=== PATIENT | female | born 1980 | race Caucasian/White ===

== ENCOUNTER 2018-01-23 08:18 | Emergency (ER) | payer BC ==
--- OUTSIDE RECORDS SUMMARY | 2018-01-23 08:24 | XMS REPORT ---
:1980 External Reference #:[id number] Author Organization [facility] Address [address] [address] Phone [phone] Care Team Providers Name Role Phone Winston Reddy MD Primary Care Physician Unavailable Payers Type Date Identification Numbers Payment Provider Subscriber Commercial Policy Number: [id number] BS [employer]ets Williams Doherty PayID: [id number] [address] [address] [place] [address] Problems Date Description Provider Status Onset: 03/17/2013 Generalized anxiety disorder Melania Alvarez M.D. Active Family History Date Family Member(s) Problem(s) Comments Father No Current Problems Mother Food allergies Social History Type Date Description Comments Marital Status Lives With Daughters and significant other Occupation customer service, college [employer] Cigarette Use Never Smoked Cigarettes ETOH Use Occasionally consumes alcohol 2-3x weekly Smoking Patient has never smoked Recreational Drug Use Denies Drug Use Exercise Type/Frequency Exercises regularly run/bike/yoga Allergies, Adverse Reactions, Alerts Date Description Reaction Status Severity Comments 03/17/2013 NKDA active Medications Medication Date Status Form Strength Qnty SIG Indications Ordering Provider Flovent HFA 11/07 Active Aerosol 110mcg/Ac 12uni Inhale 2 t ts Puffs By NAGI Riddle Mouth Twice Daily For 2 Weeks, Rinse Mouth After Use. Vitamin D3 08/15 Active Capsules [id number] 8caps 1 tab by Melania Erin mouth once Alvarez, per week, 8 M.D. weeks, then follow up for blood test Oseltamivir 09/17 Hx Capsules 75mg 10cap one capsule J11.89 Mikal Phosphate /2017 s twice daily Janessa, CILNICAL SCIENTIST - for 5 days 09/22 Fluticasone 09/17 Hx Suspension 50mcg/Act 16uni 2 sprays J11.89 Mikal Propionate ts each nostril Janessa, CILNICAL SCIENTIST - qd. x 2 10/01 weeks Flovent HFA 09/17 Hx Aerosol 110mcg/Ac 12gm 2 puffs J11.89 Mikal t twice daily, Janessa, CILNICAL SCIENTIST - rinse mouth 10/01 after use. x 2 weeks Cheratussin ac 09/17 Hx Syrup 100-10mg/ 118ml take 5-10 J11.89 Mikal 5ML milliliters Janessa, CILNICAL SCIENTIST - every 4-6 11/26 hours needed for cough. Probiotic Daily 07/09 Hx Capsules 1 by mouth Melania /2015 every day Velasquez Alvarez M.D. 11/26 Ventolin HFA 11/27 Hx Aerosol 108(90Bas 1unit 2 puffs by 466.0 e) s mouth four Antonio - mcg/Act times a day M.D. 07/09 as needed Lotrisone 11/27 Hx Cream 1-0.05% 45gm apply to 782.9 area 2x per Antonio, - day M.D. 07/09 Levofloxacin 10/17 Hx Tablets 500mg 10tab one by mouth 461.8 s daily for 10 Antonio, - days M.D. 07/09 Fluconazole 10/17 Hx Tablets 150mg 2tabs one by mouth 461.8 Mikal may repeat Janessa, CILNICAL SCIENTIST - in 3 days as 11/27 needed Triamcinolone 10/17 Hx Cream 0.1% 80gm apply thin 782.9 Mikal Acetonide film twice Janessa, CILNICAL SCIENTIST - daily 07/09 Flonase Allergy 10/12 Hx Suspension 50mcg/Act 1unit 2 sprays s each nares Velasquez Alvraez 2x pe day M.D. 07/09 Amoxicillin 10/11 Hx Capsules 500mg 20cap 1 by mouth s twice a day Velasquez Alvarez M.D. 10/12 Tussionex 10/11 Hx Liquid ER 10-8mg/5M 50ml 1 teaspoon Melania Pennkinetic /2014 L by mouth 5cc Yelena Alvarez - every 12 M.D. Release 11/27 hours needed Amoxicillin/Cla 10/02 Hx Tablets 875-125mg 20tab 1 tab by 461.8 Melania vulanate /2014 s mouth 2x per Antonio Potassium - day M.D. 10/17 No Active 07/04 Hx Unknown Medications /2013 - 10/02 Neomycin/Polymy 01/25 Hx Solution 3.5-92826 1vial 2 drops left 380.22 Melania mary/Hydrocortis /2013 -1 ear 4x per Antonio one - day 7-10 M.D. No Active 10/31 Hx Unknown Medications /2013 - 01/25 Amoxicillin 07/21 Hx Capsules 500mg 40cap 2 bid for 10 Winston s days Velasquez Martinez M.D.,FACP 10/31 Azithromycin 07/20 Hx Tablets 250mg 6tabs 2 tab po day 1 then 1 tab Antonio - po day 2-5 M.D. 07/21 Levofloxacin 07/19 Hx Tablets 500mg 7tabs take one 786.2 pill po x 7 [place]-W - days atson, 07/21 N.P. /2012 Amoxicillin 06/29 Hx Capsules 500mg 20cap 1 po bid s Velasquez Alvarez M.D. 07/19 No Active 06/20 Hx Unknown Medications /2012 - 06/20 Ventolin HFA 06/20 Hx Aerosol 108(90Bas 1unit 2 puffs po 461.9 e) s qid prn Antonio - mcg/Act M.DJames 10/31 Rhinocort Aqua 06/20 Hx Suspension 32mcg/Act 1unit 2 sprays 461.9 s each nares Velasquez Alvarez every day M.D. 10/31 No Active 04/25 Hx Unknown Medications /2012 - 04/25 Keflex 04/25 Hx Capsules 250mg 30cap 1 tab po 681.11 s every 8 Antonio, - joe George.Betty 06/20 Metrogel-Vagina 03/21 Hx Gel 0.75% 1unit apply once a s day x 7 days Velasquez Alvarez M.D. 04/25 No Active 03/17 Hx Melania Velasquez Alvarez M.D. 03/21 Calcium + D Hx Chewtabs 500-1000- every day Unknown /0000 40mg-Unt- - mcg 11/26 Immunizations CPT Code Status Date Vaccine Lot # [id number] Given 07/09/2015 Influenza Virus Vaccine, Quadrivalent, Split, [id number] Preservative Free [id number] Given 07/04/2014 Flu Vaccine Split Virus Preservative Free For Indiv [id number] Older [id number] Given 05/15/2013 Tdap - Tetanus/Diptheria/Acellular Pertussis [id number] Given 05/01/2013 Fluzone Vaccine Vital Signs Date Vital Result Comment 2017 Height 63 inches 5'3" Weight 115.00 lb Heart Rate 74 /min BP Systolic Sitting 112 mmHg BP Diastolic Sitting 64 mmHg Body Temperature 98.0 F O2 % BldC Oximetry 97 % BMI (Body Mass Index) 20.4 kg/m2 09/17/2017 Weight 115.00 lb Heart Rate 83 /min BP Systolic 104 mmHg BP Diastolic 60 mmHg Body Temperature 98.7 F O2 % BldC Oximetry 98 % 07/09/2015 Height 63 inches 5'3" Weight 109.00 lb Heart Rate 68 /min BP Systolic 98 mmHg BP Diastolic 62 mmHg Body Temperature 99.3 F BMI (Body Mass Index) 19.3 kg/m2 11/27/2014 Weight 108.75 lb Heart Rate 68 /min BP Systolic Sitting 98 mmHg BP Diastolic Sitting 68 mmHg Body Temperature 98.2 F O2 % BldC Oximetry 96 % 10/17/2014 Weight 111.00 lb Heart Rate 77 /min BP Systolic Sitting 94 mmHg BP Diastolic Sitting 59 mmHg Body Temperature 97.5 F 10/02/2014 Height 63.25 inches 5'3.25" Weight 112.00 lb w/ boots Heart Rate 88 /min BP Systolic Sitting 104 mmHg BP Diastolic Sitting 68 mmHg Body Temperature 99.1 F O2 % BldC Oximetry 99 % BMI (Body Mass Index) 19.7 kg/m2 07/04/2014 Height 63.25 inches 5'3.25" Weight 105.00 lb Heart Rate 46 /min BP Systolic Sitting 110 mmHg BP Diastolic Sitting 62 mmHg BMI (Body Mass Index) 18.5 kg/m2 01/25/2014 Weight 109.50 lb Heart Rate 68 /min BP Systolic Sitting 92 mmHg BP Diastolic Sitting 60 mmHg Body Temperature 98.0 F 10/31/2013 Weight 112.50 lb Heart Rate 68 /min BP Systolic 94 mmHg BP Diastolic 58 mmHg Respiratory Rate 16 /min Body Temperature 98.0 F 07/19/2013 Weight 111.00 lb Heart Rate 74 /min BP Systolic Sitting 98 mmHg BP Diastolic Sitting 64 mmHg Body Temperature 98.2 F O2 % BldC Oximetry 98 % 06/20/2013 Weight 111.00 lb Heart Rate 87 /min BP Systolic Sitting 108 mmHg BP Diastolic Sitting 70 mmHg Body Temperature 98.0 F 04/25/2013 Height 63.25 inches 5'3.25" Weight 107.00 lb Heart Rate 65 /min BP Systolic Sitting 102 mmHg BP Diastolic Sitting 65 mmHg BMI (Body Mass Index) 18.8 kg/m2 03/17/2013 Height 63.25 inches 5'3.25" Weight 104.00 lb Heart Rate 77 /min BP Systolic Sitting 100 mmHg BP Diastolic Sitting 60 mmHg BMI (Body Mass Index) 18.3 kg/m2 Results Test Date Test Result H/L Range Note Laboratory test finding 08/13/2015 Vitamin D Total 25(Oh) 23.4 ng/mL Low 30-50 1 Lipid Profile 08/13/2015 Triglycerides 37 mg/dL 2 (Trig/Chol/HDL) Cholesterol 147 mg/dL 3 HDL Cholesterol 66.3 mg/dL 4 LDL Cholesterol 73 mg/dL 5 CBC Auto Diff 08/13/2015 White Blood Count 4.9 10^3/uL 3.5-10.8 Red Blood Count 4.13 10^6/uL 4.0-5.4 Hemoglobin 14.0 g/dL 12.0-16.0 Hematocrit 42 % 35-47 Mean Corpuscular Volume 101 fL High 80-97 Mean Corpuscular Hemoglobin 34 pg High 27-31 Mean Corpuscular HGB Conc 34 g/dL 31-36 Red Cell Distribution Width 13 % 10.5-15 Platelet Count 231 10^3/uL 150-450 Mean Platelet Volume 7 um3 Low 7.4-10.4 Abs Neutrophils 3.1 10^3/uL 1.5-7.7 Abs Lymphocytes 1.4 10^3/uL 1.0-4.8 Abs Monocytes 0.3 10^3/uL 0-0.8 Abs Eosinophils 0.1 10^3/uL 0-0.6 Abs Basophils 0 10^3/uL 0-0.2 Abs Nucleated RBC 0.01 10^3/uL Granulocyte % 62.6 % 38-83 Lymphocyte % 28.1 % 25-47 Monocyte % 6.8 % 1-9 Eosinophil % 2.0 % 0-6 Basophil % 0.5 % 0-2 Nucleated Red Blood Cells % 0.1 Laboratory test finding 08/13/2015 Vitamin B12 456 pg/mL 180-914 6 TSH (Thyroid Stim Horm) 1.92 ?IU/mL 0.34-5.60 7 Laboratory test finding 07/09/2015 Cytology SEE RESULT BELOW 8 HPV Rna Ww/Reflex Genotype Negative Negative 9 Comp Metabolic Panel 11/27/2014 Sodium 137 mmol/L 133-145 Potassium 3.9 mmol/L 3.5-5.0 Chloride 103 mmol/L 101-111 Co2 Carbon Dioxide 29 mmol/L 22-32 Anion Gap 5 mmol/L 2-11 Glucose 84 mg/dL 70-100 Blood Urea Nitrogen 9 mg/dL 6-24 Creatinine 0.55 mg/dL 0.51-0.95 BUN/Creatinine Ratio 16.4 8-20 Calcium 9.0 mg/dL 8.6-10.3 Total Protein 7.0 g/dL 6.4-8.9 Albumin 4.4 g/dL 3.2-5.2 Globulin 2.6 g/dL 2-4 Albumin/Globulin Ratio 1.7 1-3 Total Bilirubin 0.30 mg/dL 0.2-1.0 Alkaline Phosphatase 31 U/L Low 34-104 Alt 32 U/L 7-52 Ast 28 U/L 13-39 Egfr Non- 127.3 >60 Egfr 163.7 >60 10 CBC Auto Diff 11/27/2014 White Blood Count 4.2 10^3/uL Low 4.8-10.8 Red Blood Count 4.00 10^6/uL 4.0-5.4 Hemoglobin 13.5 g/dL 12.0-16.0 Hematocrit 40 % 35-47 Mean Corpuscular Volume 100 fL High 80-97 Mean Corpuscular Hemoglobin 34 pg High 27-31 Mean Corpuscular HGB Conc 34 g/dL 31-36 Red Cell Distribution Width 13 % 10.5-15 Platelet Count 215 10^3/uL 150-450 Mean Platelet Volume 8 um3 7.4-10.4 Abs Neutrophils 1.9 10^3/uL 1.5-7.7 Abs Lymphocytes 1.7 10^3/uL 1.0-4.8 Abs Monocytes 0.5 10^3/uL 0-0.8 Abs Eosinophils 0.1 10^3/uL 0-0.6 Abs Basophils 0 10^3/uL 0-0.2 Abs Nucleated RBC 0 10^3/uL Granulocyte % 44.4 % 38-83 Lymphocyte % 41.2 % 25-47 Monocyte % 11.9 % High 1-9 Eosinophil % 1.7 % 0-6 Basophil % 0.8 % 0-2 Nucleated Red Blood Cells % 0 Laboratory test finding 11/27/2014 Erythrocyte Sed Rate 13 mm/Hr 0-14 Monospot Negative Negative Folate 14.59 ng/mL >3.99 Laboratory test finding 07/04/2014 Cytology RUN DATE: 07/05/ <SEE NOTE&gt ; 11 Human Papilloma Virus Rna Negative Negative 12 Laboratory test finding 10/31/2013 Throat Beta Strep (SEE NOTE) 13 Culture Laboratory test finding 10/31/2013 Rapid Strep A negative Vitamin B12 And Folate 05/11/2013 Vitamin B12 541 pg/mL 180-914 Serum Folate > 24.8 ng/mL High 2-16 Vitamin D, 25 Hydroxy 05/01/2013 25-Hydroxy Vitamin D2 <4.0 ng/mL 25-Hydroxy Vitamin D3 39 ng/mL 25-Hydroxy Vitamin D Total 39 ng/mL 14 CBC Auto Diff 05/01/2013 White Blood Count 5.6 10^3/uL 4.8-10.8 Red Blood Count 3.95 10^6/uL Low 4.0-5.4 Hemoglobin 13.9 g/dL 12.0-16.0 Hematocrit 40 % 35-47 Mean Corpuscular Volume 101 fL High 80-97 Mean Corpuscular Hemoglobin 35 pg High 27-31 Mean Corpuscular HGB Conc 35 g/dL 31-36 Red Cell Distribution Width 13 % 10.5-15 Platelet Count 251 10^3/uL 150-450 Mean Platelet Volume 8 um3 7.4-10.4 Abs Neutrophils 3.2 10^3/uL 1.5-7.7 Abs Lymphocytes 1.7 10^3/uL 1.0-4.8 Abs Monocytes 0.4 10^3/uL 0-0.8 Abs Eosinophils 0.2 10^3/uL 0-0.6 Abs Basophils 0 10^3/uL 0-0.2 Abs Nucleated RBC 0 10^3/uL Neutrophil % 55 % 38-83 Lymphocytes % 34 % 25-47 Monocytes % 7 % 0-13 Eosinophils % 4 % 0-6 Macrocytosis 1+ Basic Metabolic Panel 05/01/2013 Sodium 139 mmol/L 133-145 Potassium 4.2 mmol/L 3.5-5.0 Chloride 109 mmol/L 101-111 Co2 Carbon Dioxide 26.0 mmol/L 22-32 Anion Gap 4.0 mmol/L 2-11 Glucose 100 mg/dL 70-100 Blood Urea Nitrogen 12 mg/dL 6-24 Creatinine 0.50 mg/dL 0.50-1.40 BUN/Creatinine Ratio 24.0 High 8-20 Calcium 9.0 mg/dL 8.1-9.9 Egfr Non- 143.9 >60 Egfr 185.1 >60 15 Herpes Simplex Type 05/01/2013 Herpes Simplex Virus I Negative Negative 1&2 Igg IgG AB Herpes Simplex Virus II IgG AB Negative Negative 16 HIV 1/2 AB 05/01/2013 HIV 1 2 Antibody Nonreactive Nonreactive 17 Evaluation GC/Chlamydia 03/17/2013 GC/Chlamydia Rna (SEE NOTE) 18 Amplified Rna Laboratory test 03/17/2013 Affirm Vaginal Dna (SEE NOTE) 19 finding Probe Laboratory test 03/17/2013 Cytology RUN DATE: finding <SEE NOTE> Laboratory test 03/17/2013 Surgical Pathology RUN DATE: finding <SEE NOTE> 1 FASTING 10 HOUR 2 Desirable <150 Borderline high 150-199 High 200-499 Very High >500 3 Desirable <200 Borderline high 200-239 High >239 4 Low <40 Desirable: 40-60 High: >60 5 Desirable: <100 mg/dL Near Optimal: 100-129 mg/dL Borderline High: 130-159 mg/dL High: 160-189 mg/dL Very High: >189 mg/dL 6 Normal Range 180 to 914 Indeterminate Range 145 to 180 Deficient Range <145 7 FASTING 10 HOUR 8 SEE RESULT BELOW Name: MAGDA CHANDLER : [address]: Melania Alvarez MD Acct: [id number] Unit: [id number] AGE: 34 Location: [facility] Re07/09/15 SEX: F Status: REG REF SPEC: [id number] TOYA: 07/09/15-[address] [facility] [address]: Melania Alvarez MD REQ: [id number] RECD: 07/09/15 STATUS: SOUT _ ORDERED: IMAGE ANALYSIS, HPV/Thin Prep, HPV 16/18 GENE FINAL DIAGNOSIS Negative for Intraepithelial lesion or Malignancy A. Ectocervical/Endocervical Specimen Adequacy: Satisfactory of evaluation Transformation zone component identified Patient Information: HPV: High risk HPV RNA testing regardless of pap results. HPV 16/18 Genotype for HPV pos Actual Specimen Date: 07/09/15 LMP If Unknown: Last Menstrual Period Not Given. Post Menopausal?: N Previous Abnormal Pap Smears?:N Date Time Test Result Flag (u) Normal Range 07/09/15 1546 HPV RNA RFLX GE Negative Negative The high-risk HPV types detected by the assay include: 16, 18, 31, 33, 35, 39, 45, 51, 52, 56, 58, 59, 66, and 68. Signed (signature on file) Nate Noonan 07/10/15 1424 This Pap test was evaluated with the assistance of the Stolen Couch Games[employer] Test Imaging System. Due to cytologic findings at the granulator operator microscope, comprehensive manual rescreening by a [employer] Travel Counselor may be required. The Pap Smear is a screening test designed to aid in the detection of premalignant and malignant conditions of the uterine cervix. It is not a diagnostic procedure and should not be used as the sole means of detecting cervical cancer. Both false- positive and false- negative reports do occur. Depending on your risk status, a Pap smear should be obtained and evaluated every 1-3 years. END OF REPORT * ML=Testing performed at Main Lab DEPARTMENT OF PATHOLOGY, [address] [place] [address] Je Lowe M.D. Director [facility] # [id number] 9 The high-risk HPV types detected by the assay include: 16, 18, 31, 33, 35, 39, 45, 51, 52, 56, 58, 59, 66, and 68. 10 Because ethnic data is not always readily available, this report includes an eGFR for both -Americans and non- Americans. The National Kidney Disease Education Program (NKDEP) does not endorse the use of the MDRD equation for patients that are not between the ages of 18 and 70, are , have extremes of body size, muscle mass, or nutritional status, or are non- or non-. According to the National Kidney Foundation, irrespective of diagnosis, the stage of the disease is based on the level of kidney function: Stage Description GFR(mL/min/1.73 m(2)) 1 Kidney damage with normal or decreased GFR 90 2 Kidney damage with mild decrease in GFR 60-89 3 Moderate decrease in GFR 30-59 4 Severe decrease in GFR 15-29 5 Kidney failure <15 (or dialysis) 11 RUN DATE: 07/05/14 [facility] LAB LIVE PAGE 1 RUN TIME: [address] [place] [address] Specimen Inquiry Name: MAGDA KEVIN : [address]: Melania Alvarez MD Acct: [id number] Unit: [id number] AGE: 33 Location: [facility] Re07/04/14 SEX: F Status: REG REF SPEC: [id number] TOYA: 07/04/14-[address] [facility] [address]: Melania Alvarez MD REQ: [id number] RECD: 07/04/14 STATUS: SOUT _ ORDERED: IMAGE ANALYSIS, HPV/Thin Prep FINAL DIAGNOSIS Negative for Intraepithelial lesion or Malignancy HPV Result: Negative Normal Range: Negative The high-risk HPV types detected by the assay include: 16, 18, 31, 33, 35, 39, 45, 51, 52, 56, 58, 59, 66, and 68. A. Ectocervical/Endocervical Specimen Adequacy: Satisfactory of evaluation Transformation zone component identified Patient Information: HPV: High risk HPV RNA testing regardless of pap results. Actual Specimen Date: 07/04/14 LMP If Unknown: 05/2014 ?: N Post Menopausal?: N Hysterectomy?: N Previous Abnormal Pap Smears?:N Signed (signature on file) CHRISSY Rios (ASCP) 07/05 1407 This Pap test was evaluated with the assistance of the [employer] Test Imaging System. Due to cytologic findings at the granulator operator microscope, comprehensive manual rescreening by a [employer] Travel Counselor may be required. The Pap Smear is a screening test designed to aid in the detection of premalignant and malignant conditions of the uterine cervix. It is not a diagnostic procedure and should not be used as the sole means of detecting cervical cancer. Both false- positive and false- negative reports do occur. Depending on your risk status, a Pap smear shoudl be obtained and evaluated every 1-3 years. END OF REPORT * ML=Testing performed at Main Lab DEPARTMENT OF PATHOLOGY, [address] [place] [address] Je Lowe M.D. Director [facility] # [id number] 12 The high-risk HPV types detected by the assay include: 16, 18, 31, 33, 35, 39, 45, 51, 52, 56, 58, 59, 66, and 68. 13 RUN DATE: 11/02/13 [facility] LAB LIVE PAGE 1 RUN TIME: [address] [place] [address] Specimen Inquiry Name: MAGDA KEVIN : [address]: Maribel Tinsley MD Acct: [id number] Unit: [id number] AGE: 32 Location: [facility] Re10/31/13 SEX: F Status: REG REF SPEC: [id number] TOYA: 10/31/13-[address] [facility] [address]: Maribel Tinsley MD REQ: [id number] RECD: 10/31/13 STATUS: COMP _ SOURCE: THROAT SPDESC: ORDERED: Throat Beta Str QUERIES: Medent Number [id number] Procedure Result Verified Site Throat Beta Strep Culture Final 11/02/13- 0837 ML Negative For Group A Beta Streptococcus END OF REPORT * ML=Testing performed at Main Lab DEPARTMENT OF PATHOLOGY, [address] [place] [address] Je Lowe M.D. Director [facility] Permit #[id number] 14 -- REFERENCE VALUE -- 25-HYDROXY D TOTAL (D2+D3) Optimum levels in the healthy population are 20-50, patients with bone disease may benefit from higher levels within this range. Test Performed by: [facility] [address] [address] Data Architect: Yash Robert III, M.D. 15 Because ethnic data is not always readily available, this report includes an eGFR for both -Americans and non- Americans. The National Kidney Disease Education Program (NKDEP) does not endorse the use of the MDRD equation for patients that are not between the ages of 18 and 70, are , have extremes of body size, muscle mass, or nutritional status, or are non- or non-. According to the National Kidney Foundation, irrespective of diagnosis, the stage of the disease is based on the level of kidney function: Stage Description GFR(mL/min/1.73 m(2)) 1 Kidney damage with normal or decreased GFR 90 2 Kidney damage with mild decrease in GFR 60-89 3 Moderate decrease in GFR 30-59 4 Severe decrease in GFR 15-29 5 Kidney failure <15 (or dialysis) 16 Test Performed by: [place] [address] Data Architect: Yash Robert III, M.D. 17 It is recognized that currently available assays for the detection of antibodies to HIV-1 and/or HIV-2 may not detect all infected individuals. HIV antibodies may be undetectable in some stages of the infection and in some clinical conditions. The performance of this assay has not been established for populations of infants or children. Assayed by Chemiluminescence Microparticle Immunoassay on the Siemens Advia Centaur CP. Values obtained with different methods or kits cannot be used interchangeably.The diagnostic specificity of the ADVIA Centaur 1/O/2 Enhanced assay in the low risk population was 99.90% (6052/6058) with a 95% confidence interval of 99.78 to 99.96%. 18 RUN DATE: 03/21/13 [facility] LAB LIVE PAGE 1 RUN TIME: [address] [place] [address] Specimen Inquiry Name: MAGDA KEVIN : [address]: Melania Alvarez MD Acct: [id number] Unit: [id number] AGE: 32 Location: [facility] Re03/17/13 SEX: F Status: REG REF SPEC: [id number] OTYA: 03/17/[address] [facility] [address]: Melania Alvarez MD REQ: [id number] RECD: 03/17/13 STATUS: COMP _ SOURCE: [facility]: ORDERED: GC/Chlam RNA QUERIES: Medent Number [id number] Procedure Result Verified Site Chlamydia Trachomatis RNA Final 03/21/13- 1430 ML NEGATIVE for Chlamydia trachomatis rRNA GC (N. gonorrhoeae) RNA Final 03/21/13- 1424 ML NEGATIVE for Neisseria gonorrhoeae rRNA A negative result does not preclude the presence of a C. trachomatis or N. gonorrhoeae infection because results are dependent on adequate specimen collection, absence of inhibitors, and sufficient rRNA to be detected. Test results may be affected by improper specimen collection, improper storage, technical error, or specimen mixup. Limitations of the Procedure: The Aptima Combo 2 Assay is not intended for the evaluation of suspected sexual abuse or for other medico-legal indications. For those patients for whom a false positive result may have adverse psychosocial impact, the [facility] recommends retesting by a method using an alternate technology. Therapeutic failure or success cannot be determined with the Aptima Combo 2 Assay since nucleic acid may persist following appropriate antimicrobial therapy. Results from the Aptima Combo 2 Assay should be interpreted in conjunction with other laboratory and clinical data available to the clinican. CONTINUED ON NEXT PAGE * ML=Testing performed at Main Lab DEPARTMENT OF PATHOLOGY, [facility] [email or web address] [place], [place] [address] Je Lowe M.D. Director [facility] Permit #[id number] RUN DATE: 03/21/13 [facility] LAB LIVE PAGE 2 RUN TIME: 9126 [facility] [employer] [place], [place] [address] Specimen Inquiry Patient: MAGDA KEVIN [id number] (Continued) Specimen: [id number] Collected: 03/17/13-1033 Received: 03/17/13-153 (Continued) Procedure Result Verified Site GC (N. gonorrhoeae) RNA Final (continued) 03/21/13 142 Performance characteristics for detecting C. trachomatis and N. gonorrhoeae are derived from high prevalence populations. Positive results in low prevalence populations should be interpreted carefully with the understanding that the likelihood of a false positive may be higher than a true positive. END OF REPORT * ML=Testing performed at Main Lab DEPARTMENT OF PATHOLOGY, [facility] [email or web address] [place], [place] [address] Je Lowe M.D. Director [facility] Permit #[id number] RUN DATE: 03/18/13 [facility] LAB LIVE PAGE 1 RUN TIME: 2463 [facility] [employer] [place], [place] [address] Specimen Inquiry Name: MAGDA KEVIN : [address]: Melania Alvarez MD Acct: [id number] Unit: [id number] AGE: 32 Location: [facility] Re03/17/13 SEX: F Status: REG REF SPEC: [id number] TOYA: 03/17/13-[address] [facility] [address]: Melania Alvarez MD REQ: [id number] RECD: 03/17/13 STATUS: COMP _ SOURCE: VAGINAL SPDESC: ORDERED: Affirm QUERIES: Medent Number [id number] Procedure Result Verified Site Affirm Vaginal DNA Probe Final 03/18/13- 1416 ML Organism 1 Negative Trichomonas Organism 2 POSITIVE GARDNERELLA Organism 3 Negative Vannessa The presence of G. vaginalis, although suggestive, is not diagnostic for bacterial vaginosis. Results should be interpreted in conjunction with other clinical and laboratory data available. Women with vaginal discharge should be evaluated for risk factors of cervicitis and pelvic inflammatory disease, toxic shock syndrome (S.aureus), and if present, evaluated for organisms not included in this assay such as N. gonorrhoeae, C. trachomatis, Mobiluncus, Mycoplasma and/or Prevotella. Mixed infections may occur. The performance of this test on patient specimens collected during or immediately after antimicrobial therapy is unknown. The presence or absence of Vannessa species, G. vaginalis or T. vaginalis cannot be used as a test for therapeutic success or failure. END OF REPORT * ML=Testing performed at Main Lab DEPARTMENT OF PATHOLOGY, [facility] [email or web address] [place] [address] Je Lowe M.D. Director [facility] Permit #[id number] 20 RUN DATE: 03/20/13 [facility] LAB LIVE PAGE 1 RUN TIME: 1232 [facility] [employer] [place], [place] [address] Specimen Inquiry Name: MAGDA KEVIN : [address]: Melania Alvarez MD Acct: [id number] Unit: [id number] AGE: 32 Location: [facility] Re03/17/13 SEX: F Status: REG REF SPEC: [id number] TOYA: 03/17/13-[address] [facility] [address]: Melania Alvarez MD REQ: [id number] RECD: 03/17/13170 STATUS: SOUT _ ORDERED: IMAGE ANALYSIS FINAL DIAGNOSIS Negative for Intraepithelial lesion or Malignancy A. Ectocervical/Endocervical Specimen Adequacy: Satisfactory of evaluation Transformation zone component identified Patient Information: HPV: Thin Layer Pap Test w/reflex to high risk HPV DNA testing when ASCUS Actual Specimen Date: 03/17/13 Last Menstrual Date: 03/12/13 Cautery: N IUD: N Lesion, grossly demonstrate: N ?: N Post Menopausal?: N Hysterectomy?: N Previous Abnormal Pap Smears?:Y If Yes, enter Diagnosis: abnormal pap 4 yrs ago, unknown Signed (signature on file) CHRISSY Rios (ASCP) 03/20 1232 This Pap test was evaluated with the assistance of the [employer] Test Imaging System. Due to cytologic findings at the granulator operator microscope, comprehensive manual rescreening by a [employer] Counselor may be required. The Pap Smear is a screening test designed to aid in the detection of premalignant and malignant conditions of the uterine cervix. It is not a diagnostic procedure and should not be used as the sole means of detecting cervical cancer. Both false- positive and false- negative reports do occur. Depending on your risk status, a Pap smear shoudl be obtained and evaluated every 1-3 years. END OF REPORT * ML=Testing performed at Main Lab DEPARTMENT OF PATHOLOGY, [address] [place] [address] Je Lowe M.D. Director [facility] Permit #[id number] RUN DATE: 03/21/13 [facility] LAB LIVE PAGE 1 RUN TIME: [address] [place] [address], [place], [place] [address] Specimen Inquiry Name: MAGDA KEVIN : [address]: Melania Alvarez MD Acct: [id number] Unit: [id number] AGE: 32 Location: [facility] Re03/17/13 SEX: F Status: REG REF SPEC: [id number] TOYA: 03/17/13-[address]: Melania Alvarez MD REQ: [id number] RECD: 03/17/131550 STATUS: SOUT _ ORDERED: LEVEL III FINAL DIAGNOSIS Skin, adjacent to rectum, biopsy: Acrochordon. PRE-OPERATIVE DIAGNOSIS ? Skin tag versus wart. GROSS DESCRIPTION The specimen is received in formalin labeled Magda Kevin, Adjacent to Rectum, Pedunculated, Soft Brown and consists of a bennett-owen, polypoid fragment measuring 0.4 x 0.4 x 0.4 cm. Submitted entirely in one cassette. Signed (signature on file) Je Lowe MD 1514 END OF REPORT * ML=Testing performed at Main Lab DEPARTMENT OF PATHOLOGY, [address] [place] [address] Je Lowe M.D. Director [facility] Permit #[id number] Procedures Date CPT Code Description Status 03/17/2013 15802 Biopsy Of Vulva One Lesion (Separate Procedure) Completed Encounters Type Date Location Provider CPT E/M Dx Office Visit 2017 2:40p [facility] CHAITANYA Cunningham [address] Z00.00 - [address] M25.572 Office Visit 09/17/2017 11:20a [facility] [place] [address] J11.89 - [place] Office Visit 07/09/2015 3:00p [facility] Melania Alvarez M.D. 63029 Z00.00 - [place] Z82.49 R79.9 Z12.4 Z23 Office Visit 11/27/2014 3:40p [facility] Melania Alvarez M.D. 65129 461.8 - [place] 466.0 782.9 Office Visit 10/17/2014 2:30p [facility] [place] [address] 461.8 [place] 782.9 Office Visit 10/02/2014 9:00a [facility] Melania Alvarez M.D. 46918 461.8 - [place] 461.9 Office Visit 07/04/2014 9:00a [facility] Melania Alvarez M.D. 29772 V70.0 - [place] V76.2 V76.19 300.02 V17.49 V04.81 Office Visit 01/25/2014 3:20p [facility] Melania Alvarez M.D. 08701 380.22 - [place] Office Visit 10/31/2013 10:00a [facility] Maribel Tinsley M.D., 68301 478.9 - [place] FACP 462 Office Visit 07/19/2013 3:30p [facility] Mary Ann WhippleShante, 24091 786.2 Medicine - [facility] [place] Office Visit 06/20/2013 2:40p [facility] Melania Alvarez M.D. 02810 461.9 [facility] Office Visit 04/25/2013 3:00p [facility] Melania Alvarez M.D. 07009 681.11 [facility] Office Visit 03/17/2013 9:00a [facility] Melania Alvarez M.D. 52535 V70.0 [facility] 300.02 709.8 V76.19 V76.2 v72.31 Plan of Care 2017 - Ruth Palomares, FNPZ00.00 Encntr for general adult medical exam w/o abnormal findingsComments:For your routine health maintenance: I encourage you to continue with regular exercise and healthy nutrition. We reviewed healthy lifestyle practices, specifically, strategies to maintain a durable ideal body weight and an aerobic exercise routine. You are due for a pap smear in 2019.M25.572 Pain in left ankle and joints of left footNew Therapy:Physical TherapyComments:Follow up with Wellington Harman for PT at [facility]
[2018-01-23 08:30] VITALS: BP 115/67
--- NOTE | 2018-01-23 08:57 | UC ---
Toan Mendez Stephanie, scribed for BriiBrendan maharaj MD on 01/23/18 at 0846 . Throat Pain/Nasal Maurilio HPI - HPI Summary HPI Summary: In Room Note: The pt is a 37 y/o F presenting to with c/o sore throat that began on 01/21/18. Symptoms include sinus pressure, cough and body aches. She denies fever. She reports hx with seasonal allergies. She reports her daughter was recently diagnosed with strep throat last week. She denies past hospitalizations. MD Note: Vital signs stable. Afebrile. 4/10 throat pain, non-smoker. Visit hx: sinusitis, no allergies. Nurse Note: c/o sore throat since wednesday night. Yesterday, she states feeling a lot of pressure in her sinus's and coughing a lot, body aches. Her daughter was dx'sed with strep last week. Denies fever. - History of Current Complaint Chief Complaint: UCRespiratory Stated Complaint: SINUS CONGESTION Time Seen by Provider: 01/23/18 08:33 Hx Obtained From: Patient Hx Last Menstrual Period: 01/02/18 ?: No Onset/Duration: Gradual Onset, Lasting Weeks - 1, Still Present Severity: Moderate Pain Intensity: 4 Pain Scale Used: 0-10 Numeric Cough: Nonproductive Associated Signs & Symptoms: Positive: Sinus Discomfort. Negative: Fever Related History: Seasonal Allergies - Allergies/Home Medications Allergies/Adverse Reactions: Allergies Allergy/AdvReac Type Severity Reaction Status Date / Time No Known Allergies Allergy Verified 01/23/18 08:30 Home Medications: Home Medications Fexofenadine (NF) [Marielos 180 (NF)] 180 mg PO DAILY 01/23/18 [History Confirmed 01/23/18] PMH/Surg Hx/FS Hx/Imm Hx Previously Healthy: Yes - The denies past medical hx. Other Respiratory History: NEGATIVE: Asthma - Surgical History Surgical History: None - Family History Known Family History: Negative: Renal Disease - Social History Occupation: Employed Full-time Lives: With Family Alcohol Use: Weekly Substance Use Type: None Smoking Status (MU): Never Smoked Tobacco Have You Smoked in the Last Year: No Review of Systems Constitutional: Negative Skin: Negative Eyes: Negative ENT: Sore Throat, Sinus Congestion Respiratory: Cough Cardiovascular: Negative Gastrointestinal: Negative Genitourinary: Negative Motor: Negative Neurovascular: Negative Musculoskeletal: Myalgia Neurological: Negative Psychological: Negative All Other Systems Reviewed And Are Negative: Yes - Comments Additional Review of Systems Comments: POSITIVE: SORE THROAT, SINUS PRESSURE, COUGH, BODY ACHES NEGATIVE: DENIES FEVER Physical Exam - Summary Physical Exam Summary: Appearance: The patient is well-appearing, is in no pain distress, and is well- nourished. Eyes: Conjunctiva are clear. ENT: The hearing is grossly normal and the TMs are normal. There is no muffled or hoarse voice. MILD MAXILLARY SINUS DISCOMFORT WITH PALPATION. NO EXUDATE. MILD ERYTHEMA ON SOFT PALATE. NO TONSILLAR SWELLING. NO EVIDENCE OF PERITONSILLAR ABSCESS. Neck: POSITIVE MILD ANTERIOR CERVICAL ADENOPATHY WITH PALPATION. Respiratory: The chest is nontender. The lungs are clear, there are normal breath sounds, and there is no respiratory distress. Cardiovascular: Heart is regular rate and rhythm. There is no murmur. Abdomen: The abdomen is soft and nontender. There is no organomegaly. Bowel sounds: present Musculoskeletal: Strength is intact. The patient moves all extremities. Neurological: The patient is alert. Psychological: The patient displays age appropriate behavior Skin: Negative for rashes. Triage Information Reviewed: Yes Vital Signs: Initial Vital Signs Temp 98.4 F 01/23/18 08:24 Pulse 66 01/23/18 08:24 Resp 15 01/23/18 08:24 BP 115/67 01/23/18 08:24 Pulse Ox 98 01/23/18 08:24 Vital Signs Reviewed: Yes Throat Pain/Nasal Course/Dx - Course Course Of Treatment: Medications have been included in the original chart and reviewed. The patient is a healthy 37-year-old female exposed to strep throat. Rapid strep was negative. She does have a history of environmental allergies. She has sinus congestion and pain as well as a productive cough. I will treat her for sinusitis with amoxicillin for 5 days. - Differential Dx/Diagnosis Differential Diagnosis/HQI/PQRI: Influenza, Mononucleosis, Tonsillitis, URI Provider Diagnoses: Sinusitis, maxillary Discharge - Sign-Out/Discharge Documenting (check all that apply): Discharge/Admit/Transfer - Discharge - Discharge Plan Condition: Stable Disposition: HOME Prescriptions: Amoxicillin PO (*) [Amoxicillin 875 MG (*)] 875 mg PO BID #10 tab MDD 2 Patient Education Materials: Pharyngitis (ED), Sinusitis (ED) Referrals: [facility] [Outside] Care [facility] [Outside] - 1 Week Additional Instructions: PLEASE SEEK CARE AT THE EMERGENCY DEPARTMENT IF SYMPTOMS WORSEN OR IF NEW SYMPTOMS DEVELOP. FOLLOW UP WITH YOUR PRIMARY CARE PHYSICIAN. As we discussed, your strep test was negative. He will be treated for sinusitis with amoxicillin, twice a day for 5 days. Warm moist heat to the face and the chest will help promote thinning of secretions and drainage. Check at any time for increased pain, temperature, difficulty breathing or swallowing. This condition should be resolving over the next 7-10 days. - Billing Disposition and Condition Condition: STABLE Disposition: Home The documentation as recorded by the Toan smyth Stephanie accurately reflects the service I personally performed and the decisions made by , Brendan Silva MD.
== END 2018-01-23 09:07 | disposition home or self-care (01) ==
LOC: UCEAST 08:18
DX: J32.0 Chronic maxillary sinusitis (principal); J02.9 Acute pharyngitis, unspecified; R05 Cough; M79.1 Myalgia
CPT/HCPCS: 87651; 99212; G0463

== ENCOUNTER 2018-07-30 07:10 | Emergency (ER) | payer BC ==
--- OUTSIDE RECORDS SUMMARY | 2018-07-30 07:16 | XMS REPORT | Continuity of Care Document ---
:1980 External Reference #:[id number] Author Name Davie Ovalles Care Team Providers Name Role Phone Winston Reddy MD Primary Care Physician Unavailable Payers Type Date Identification Numbers Payment Provider Subscriber Policy Number: [id number] BS Millie Doherty PayID: [id number] [address] [address] [place] [address] Advance Directives Description No Information Available Problems Date Description Provider Status Onset: 03/17/2013 Generalized anxiety disorder Melania Alvarez M.D. Active Family History Date Family Member(s) Problem(s) Comments Father No Current Problems Mother Food allergies Social History Type Date Description Comments Sex Unknown Marital Status Lives With Daughters and significant other Occupation customer service, college [employer] Tobacco Use Start: Unknown Never Smoked Cigarettes Smoking Status Reviewed: 07/01/18 Never Smoked Cigarettes ETOH Use Occasionally consumes 2-3x weekly alcohol Tobacco Use Start: Unknown Patient has never smoked Recreational Drug Use Denies Drug Use Exercise Type/Frequency Exercises regularly run/bike/yoga Allergies, Adverse Reactions, Alerts Description No Known Drug Allergies Medications Medication Date Status Form Strength Qnty SIG Indications Ordering Provider No Active 07/01 Active Unknown Medications /2017 Flovent HFA 11/07 Hx Aerosol 110mcg/Ac 12uni Inhale 2 Mikal t ts Puffs By NAGI Riddle - Mouth Twice 07/01 Daily For Weeks, Rinse Mouth After Use. Oseltamivir 09/17 Hx Capsules 75mg 10cap one capsule J11.89 Mikal Phosphate s twice daily NAGI Riddle - for 5 days 09/22 Fluticasone 09/17 Hx Suspension 50mcg/Act 16uni 2 sprays J11. Mikal Propionate ts each nostril Janessa, LAB CLERK - qd. x 2 Flovent HFA 09/17 Hx Aerosol 110mcg/Ac 12gm 2 puffs J11. Mikal t twice daily, Janessa, LAB CLERK - rinse mouth 10/01 after use. x 2 weeks Cheratussin ac 09/17 Hx Syrup 100-10mg/ 118ml take 5-10 J11. Mikal 5ML milliliters Janessa, LAB CLERK - every 4-6 11/26 hours needed for cough. Vitamin D3 08/15 Hx Capsules [id number] 8caps 1 tab by mouth once Antonio, - per week, 8 M.D. 07/01 weeks, follow up for blood test Probiotic Daily 07/09 Hx Capsules 1 by mouth every day Antonio, - M.D. 11/26 Ventolin HFA 11/27 Hx Aerosol 108(90Bas 1unit 2 puffs by 466.0 e) s mouth four Antonio, - mcg/Act times a day M.D. 07/09 as needed Lotrisone 11/27 Hx Cream 1-0.05% 45gm apply to 782.9 area 2x per Antonio, - day M.D. 07/09 Levofloxacin 10/17 Hx Tablets 500mg 10tab one by mouth 461.8 s daily for 10 Antonio, - days M.D. 07/09 Fluconazole 10/17 Hx Tablets 150mg 2tabs one by mouth 461.8 December repeat Janessa LAB CLERK - in 3 days as 11/27 needed Triamcinolone 10/17 Hx Cream 0.1% 80gm apply thin 782.9 Mikal Acetonide film twice Janessa LAB CLERK - daily 07/09 Flonase Allergy 10/12 Hx Suspension 50mcg/Act 1unit 2 sprays s each nares Antonio, - 2x pe day M.D. 07/09 Amoxicillin 10/11 Hx Capsules 500mg 20cap 1 by mouth Melania /2015 s twice a day Velasquez Alvarez M.DJames 10/12 Tussionex 10/11 Hx Liquid ER 10-8mg/5M 50ml 1 teaspoon Melania Pennkinetic /2014 L by mouth 5cc Yelena Alvarez - every 12 M.D. Release 11/27 hours needed Amoxicillin/Cla 10/02 Hx Tablets 875-125mg 20tab 1 tab by 461.8 Melania vulanate /2014 s mouth 2x per Antonio Potassium - day M.D. 10/17 No Active 07/04 Hx Unknown Medications /2013 - 10/02 Neomycin/Polymy 01/25 Hx Solution 3.5-04804 1vial 2 drops left 380.22 Melania mary/Hydrocortis [...] take one 786.2 pill po x 7 [place]-W - days atson, 07/21 N.P. /2012 Amoxicillin 06/29 Hx Capsules 500mg 20cap 1 po bid s Velasquez Alvarez M.D. 07/19 No Active 06/20 Hx Unknown Medications /2012 - 06/20 Ventolin HFA 06/20 Hx Aerosol 108(90Bas 1unit 2 puffs po 461.9 e) s qid prn Velasquez Alvarez mcg/Act M.DJames 10/31 Rhinocort Aqua 06/20 Hx Suspension 32mcg/Act 1unit 2 sprays 461.9 s each nares Velasquez Alvarez every day M.D. 10/31 No Active 04/25 Hx Unknown Medications /2012 - 04/25 Keflex 04/25 Hx Capsules 250mg 30cap 1 tab po 681.11 s every 8 Velasquez Alvarez M.D. 06/20 Metrogel-Vagina 03/21 Hx Gel 0.75% 1unit apply once a s day x 7 days Velasquez Alvarez M.D. 04/25 No Active 03/17 Hx Melania Velasquez Alvarez M.D. 03/21 Calcium + D Hx Chewtabs 500-1000- every day Unknown /0000 40mg-Unt- - mcg 11/26 Immunizations CPT Code Status Date Vaccine Lot # [id number] Given 07/09/2015 Influenza Virus Vaccine, Quadrivalent, Split, [id number] Preservative Free [id number] Given 07/04/2014 Flu Vaccine Split Virus Preservative Free For Indiv [id number] [id number] Older [id number] Given 05/15/2013 Tdap - Tetanus/Diptheria/Acellular Pertussis [id number] Given 05/01/2013 Fluzone Vaccine Vital Signs Date Vital Result Comment 07/01/2018 4:15pm Height 63 inches 5'3" Weight 119.00 lb Heart Rate 90 /min BP Systolic 114 mmHg BP Diastolic 81 mmHg Body Temperature 97.5 F O2 % BldC Oximetry 100 % BMI (Body Mass Index) 21.1 kg/m2 2017 2:34pm Height 63 inches 5'3" Weight 115.00 lb Heart Rate 74 /min BP Systolic Sitting 112 mmHg BP Diastolic Sitting 64 mmHg Body Temperature 98.0 F O2 % BldC Oximetry 97 % BMI (Body Mass Index) 20.4 kg/m2 09/17/2017 11:41am Weight 115.00 lb Heart Rate 83 /min BP Systolic 104 mmHg BP Diastolic 60 mmHg Body Temperature 98.7 F O2 % BldC Oximetry 98 % 07/09/2015 3:07pm Height 63 inches 5'3" Weight 109.00 lb Heart Rate 68 /min BP Systolic 98 mmHg BP Diastolic 62 mmHg Body Temperature 99.3 F BMI (Body Mass Index) 19.3 kg/m2 11/27/2014 3:48pm Weight 108.75 lb Heart Rate 68 /min BP Systolic Sitting 98 mmHg BP Diastolic Sitting 68 mmHg Body Temperature 98.2 F O2 % BldC Oximetry 96 % 10/17/2014 2:40pm Weight 111.00 lb Heart Rate 77 /min BP Systolic Sitting 94 mmHg BP Diastolic Sitting 59 mmHg Body Temperature 97.5 F 10/02/2014 8:50am Height 63.25 inches 5'3.25" Weight 112.00 lb w/ boots Heart Rate 88 /min BP Systolic Sitting 104 mmHg BP Diastolic Sitting 68 mmHg Body Temperature 99.1 F O2 % BldC Oximetry 99 % BMI (Body Mass Index) 19.7 kg/m2 07/04/2014 9:03am Height 63.25 inches 5'3.25" Weight 105.00 lb Heart Rate 46 /min BP Systolic Sitting 110 mmHg BP Diastolic Sitting 62 mmHg BMI (Body Mass Index) 18.5 kg/m2 01/25/2014 3:25pm Weight 109.50 lb Heart Rate 68 /min BP Systolic Sitting 92 mmHg BP Diastolic Sitting 60 mmHg Body Temperature 98.0 F 10/31/2013 10:04am Weight 112.50 lb Heart Rate 68 /min BP Systolic 94 mmHg BP Diastolic 58 mmHg Respiratory Rate 16 /min Body Temperature 98.0 F 07/19/2013 3:37pm Weight 111.00 lb Heart Rate 74 /min BP Systolic Sitting 98 mmHg BP Diastolic Sitting 64 mmHg Body Temperature 98.2 F O2 % BldC Oximetry 98 % 06/20/2013 2:47pm Weight 111.00 lb Heart Rate 87 /min BP Systolic Sitting 108 mmHg BP Diastolic Sitting 70 mmHg Body Temperature 98.0 F 04/25/2013 2:57pm Height 63.25 inches 5'3.25" Weight 107.00 lb Heart Rate 65 /min BP Systolic Sitting 102 mmHg BP Diastolic Sitting 65 mmHg BMI (Body Mass Index) 18.8 kg/m2 03/17/2013 8:50am Height 63.25 inches 5'3.25" Weight 104.00 lb Heart Rate 77 /min BP Systolic Sitting 100 mmHg BP Diastolic Sitting 60 mmHg BMI (Body Mass Index) 18.3 kg/m2 Results Test Date Facility Test Result H/L Range Note Laboratory test 08/13/2015 [facility] Vitamin D Total 23.4 ng/ mL Low 30-50 [address](Oh) [place] [address] [phone] Lipid Profile 08/13/2015 [facility] Triglycerides 37 mg/dL N 2 (Trig/Chol/HDL) [address] [place], [place] [id number] [phone] Cholesterol 147 mg/dL N 3 HDL Cholesterol 66.3 mg/dL N 4 LDL Cholesterol 73 mg/dL N 5 CBC Auto Diff 08/13/2015 [facility] White Blood 4.9 10^3/uL N 3.5-10.[address] [place] [address] [phone] Red Blood Count 4.13 10^6/uL N 4.0-5.4 Hemoglobin 14.0 g/dL N 12.0-16.0 Hematocrit 42 % N 35-47 Mean Corpuscular Volume 101 fL High 80-97 Mean Corpuscular Hemoglobin 34 pg High 27-31 Mean Corpuscular HGB Conc 34 g/dL N 31-36 Red Cell Distribution Width 13 % N 10.5-15 Platelet Count 231 10^3/uL N 150-450 Mean Platelet Volume 7 um3 Low 7.4-10.4 Abs Neutrophils 3.1 10^3/uL N 1.5-7.7 Abs Lymphocytes 1.4 10^3/uL N 1.0-4.8 Abs Monocytes 0.3 10^3/uL N 0-0.8 Abs Eosinophils 0.1 10^3/uL N 0-0.6 Abs Basophils 0 10^3/uL N 0-0.2 Abs Nucleated RBC 0.01 10^3/uL N Granulocyte % 62.6 % N 38-83 Lymphocyte % 28.1 % N 25-47 Monocyte % 6.8 % N 1-9 Eosinophil % 2.0 % N 0-6 Basophil % 0.5 % N 0-2 Nucleated Red Blood Cells % 0.1 N Laboratory test 08/13/2015 [facility] Vitamin B12 456 pg/mL N 180-914 6 finding [address] [place] [address] [phone] TSH (Thyroid Stim Horm) 1.92 ?IU/mL N 0.34-5.60 7 Laboratory test 07/09/2015 [facility] Cytology SEE RESULT BELOW 8 finding [address] [place], [place] [id number] [phone] HPV Rna Ww/Reflex Genotype Negative N Negative 9 Comp Metabolic Panel 11/27/2014 [facility] Sodium 137 mmol/L N 133-145 [address] [place] [address] [phone] Potassium 3.9 mmol/L N 3.5-5.0 Chloride 103 mmol/L N 101-111 Co2 Carbon Dioxide 29 mmol/L N 22-32 Anion Gap 5 mmol/L N 2-11 Glucose 84 mg/dL N 70-100 Blood Urea Nitrogen 9 mg/dL N 6-24 Creatinine 0.55 mg/dL N 0.51-0.95 BUN/Creatinine Ratio 16.4 N 8-20 Calcium 9.0 mg/dL N 8.6-10.3 Total Protein 7.0 g/dL N 6.4-8.9 Albumin 4.4 g/dL N 3.2-5.2 Globulin 2.6 g/dL N 2-4 Albumin/Globulin Ratio 1.7 N 1-3 Total Bilirubin 0.30 mg/dL N 0.2-1.0 Alkaline Phosphatase 31 U/L Low 34-104 Alt 32 U/L N 7-52 Ast 28 U/L N 13-39 Egfr Non- 127.3 N >60 Egfr 163.7 N >60 10 CBC Auto 11/27/2014 [facility] White Blood 4.2 10^3/uL Low 4.8 -10.[address] [place] [address] [phone] Red Blood Count 4.00 10^6/uL N 4.0-5.4 Hemoglobin 13.5 g/dL N 12.0-16.0 Hematocrit 40 % N 35-47 Mean Corpuscular Volume 100 fL High 80-97 Mean Corpuscular Hemoglobin 34 pg High 27-31 Mean Corpuscular HGB Conc 34 g/dL N 31-36 Red Cell Distribution Width 13 % N 10.5-15 Platelet Count 215 10^3/uL N 150-450 Mean Platelet Volume 8 um3 N 7.4-10.4 Abs Neutrophils 1.9 10^3/uL N 1.5-7.7 Abs Lymphocytes 1.7 10^3/uL N 1.0-4.8 Abs Monocytes 0.5 10^3/uL N 0-0.8 Abs Eosinophils 0.1 10^3/uL N 0-0.6 Abs Basophils 0 10^3/uL N 0-0.2 Abs Nucleated RBC 0 10^3/uL N Granulocyte % 44.4 % N 38-83 Lymphocyte % 41.2 % N 25-47 Monocyte % 11.9 % High 1-9 Eosinophil % 1.7 % N 0-6 Basophil % 0.8 % N 0-2 Nucleated Red Blood Cells % 0 N Laboratory test 11/27/2014 [facility] Erythrocyte Sed 13 mm/Hr N 0-[address] [place] [address] [phone] Monospot Negative N Negative Folate 14.59 ng/mL N >3.99 Laboratory test 07/04/2014 [facility] Cytology RUN DATE: finding [address] <SEE NOTE> [place] [address] [phone] Human Papilloma Virus Rna Negative N Negative 12 Laboratory test 10/31/2013 [facility] Throat Beta (SEE NOTE) [address] [place] [address] [phone] Laboratory test 10/31/2013 [facility] Rapid Strep A negative finding Vitamin B12 And 05/11/2013 [facility] Vitamin B12 541 pg/mL 180-91 Folate Serum [address] 4 [place] [address] [phone] Folate > 24.8 ng/mL High 2-16 Vitamin D, 25 05/01/2013 [facility] 25-Hydroxy Vitamin <4.0 ng/ mL Hydroxy [address] D2 [place] [address] [phone] 25-Hydroxy Vitamin D3 39 ng/mL 25-Hydroxy Vitamin D Total 39 ng/mL 14 CBC Auto Diff 05/01/2013 [facility] White Blood 5.6 10^3/uL 4.8-10.[address] [place] [address] [phone] Red Blood Count 3.95 10^6/uL Low 4.0-5.4 [...] 0-6 Macrocytosis 1+ Basic Metabolic Panel 05/01/2013 [facility] Sodium 139 mmol/L 133-[address] [place] [address] [phone] Potassium 4.2 mmol/L 3.5-5.0 Chloride 109 mmol/L 101-111 Co2 Carbon Dioxide 26.0 mmol/L 22-32 Anion Gap 4.0 mmol/L 2-11 Glucose 100 mg/dL 70-100 Blood Urea Nitrogen 12 mg/dL 6-24 Creatinine 0.50 mg/dL 0.50-1.40 BUN/Creatinine Ratio 24.0 High 8-20 Calcium 9.0 mg/dL 8.1-9.9 Egfr Non- 143.9 >60 Egfr 185.1 >60 15 Herpes Simplex 05/01/2013 [facility] Herpes Simplex Negative Negative Type 1&[address] Virus [place] [address] [phone] Herpes Simplex Virus II IgG AB Negative Negative 16 HIV 1/2 AB 05/01/2013 [facility] HIV 1 2 Nonreactive Nonreactive [address] [place] [address] [phone] GC/Chlamydia 03/17/2013 [facility] GC/Chlamydia (SEE NOTE) 18 Amplified Rna [address] Rna [place], [place] [id number] [phone] Laboratory 03/17/2013 [facility] Affirm (SEE NOTE) 19 test finding [address] [place] [address] Probe [phone] Laboratory 03/17/2013 [facility] Cytology RUN DATE: 20 test finding [address] 03/20/ <[place] [address] NOTE> [phone] Laboratory 03/17/2013 [facility] Surgical RUN DATE: test finding [address] Pathology <[place] [address] NOTE> [phone] 1 FASTING 10 HOUR 2 Desirable <150 [...] [address]: Melania Alvarez MD Acct: [id number] Unit: [id number] AGE: 34 Location: [facility] Re07/09/15 SEX: F Status: REG REF SPEC: [id number] TOYA: 07/09/15-[address]: Melania Alvarez MD REQ: [id number] RECD: 07/09/15 STATUS: SOUT _ ORDERED: IMAGE [...] Signed (signature on file) Nate Noonan 07/10/15 1422 This Pap test was evaluated with the assistance of the [employer] Test Imaging System. Due to cytologic findings at the pack worker microscope, comprehensive manual rescreening by a Residential Roofer Helper may be required. The Pap Smear is [...] performed at Main Lab DEPARTMENT OF PATHOLOGY, [facility] [address] [place], [place] [address] Je Lowe M.D. Director [facility] # [id number] 9 The high-risk HPV types detected by [...] <15 (or dialysis) 11 RUN DATE: 07/05/14 [facility] LAB LIVE PAGE 1 RUN TIME: [address] [facility] [place] [place], [place] [address] Specimen Inquiry Name: MAGDA KEVIN : [address]: Melania Alvarez MD Acct: [id number] Unit: [id number] AGE: 33 Location: [facility] Re07/04/14 SEX: F Status: REG REF SPEC: [id number] TOYA: 07/04/14-[address]: Melania Alvarez MD REQ: [id number] RECD: 07/04/14 STATUS: SOUT _ ORDERED: IMAGE [...] (signature on file) CHRISSY Rios (ASCP) 07/05 1405 This Pap test was evaluated with the assistance of the PeakStreamPrep Test Imaging System. Due to cytologic findings at the pack worker microscope, comprehensive manual rescreening by a Residential Roofer Helper may be required. The Pap Smear is [...] performed at Main Lab DEPARTMENT OF PATHOLOGY, [address] [place] [address] Je Lowe M.D. Director [facility] # [id number] 12 The high-risk HPV types detected by the assay include: 16, 18, 31, 33, 35, 39, 45, 51, 52, 56, 58, 59, 66, and 68. 13 RUN DATE: 11/02/13 [facility] LAB LIVE PAGE 1 RUN TIME: [address] [place] [address] Specimen Inquiry Name: MAGDA KEVIN : [address]: Maribel Tinsley MD Acct: [id number] Unit: [id number] AGE: 32 Location: [facility] Re10/31/13 SEX: F Status: REG REF SPEC: [id number] TOYA: 10/31/13-[address]: Maribel Tinsley MD REQ: [id number] RECD: 10/31/13-1640 STATUS: COMP _ SOURCE: THROAT SPDESC: ORDERED: Throat Beta Str QUERIES: Medent Number [id number] Procedure Result Verified Site Throat Beta Strep Culture Final 11/02/13- 0837 ML Negative For Group A Beta Streptococcus END OF REPORT * ML=Testing performed at Main Lab DEPARTMENT OF PATHOLOGY, [address] [place] [address] Je Lowe M.D. Director [facility] Permit #[id number] 14 -- REFERENCE VALUE -- 25-HYDROXY D TOTAL (D2+D3) Optimum levels in the healthy population are 20-50, patients with bone disease may benefit from higher levels within this range. Test Performed by: [address] [address] Director Of Professional Services: Yash Robert III, M.D. 15 Because ethnic [...] <15 (or dialysis) 16 Test Performed by: [place] [address] Director Of Professional Services: Yash Robert III, M.D. 17 It is [...] 99.78 to 99.96%. 18 RUN DATE: 03/21/13 [facility] LAB LIVE PAGE 1 RUN TIME: [address] [place] [address] Specimen Inquiry Name: MAGDA KEVIN : [address]: Melania Alvarez MD Acct: [id number] Unit: [id number] AGE: 32 Location: [facility] Re03/17/13 SEX: F Status: REG REF SPEC: [id number] TOYA: 03/17/13-[address]: Melania Alvarez MD REQ: [id number] RECD: 03/17/13 STATUS: COMP _ SOURCE: [facility]: ORDERED: GC/Chlam RNA QUERIES: Medent Number [id number] Procedure Result Verified Site Chlamydia Trachomatis RNA [...] result may have adverse psychosocial impact, the [facility] recommends retesting by a method using an [...] performed at Main Lab DEPARTMENT OF PATHOLOGY, [facility] [place], [place] [address] Je Lowe M.D. Director [facility] Permit #[id number] RUN DATE: 03/21/13 [facility] LAB LIVE PAGE 2 RUN TIME: [address] [facility] [place], [place] [address] Specimen Inquiry Patient: MAGDA KEVIN [id number] (Continued) Specimen: [id number] Collected: 03/17/13 Received: 03/17/13 (Continued) Procedure Result Verified Site GC (N. gonorrhoeae) RNA Final (continued) 03/21/13- 1424 Performance characteristics for detecting C. trachomatis and N. gonorrhoeae are derived from high prevalence populations. Positive results in low prevalence populations should be interpreted carefully with the understanding that the likelihood of a false positive may be higher than a true positive. END OF REPORT * ML=Testing performed at Main Lab DEPARTMENT OF PATHOLOGY, [facility] [place], [place] [address] Je Lowe M.D. Director [facility] Permit #[id number] RUN DATE: 03/18/13 [facility] LAB LIVE PAGE 1 RUN TIME: [address] [facility] [place], [place] [address] Specimen Inquiry Name: MAGDA KEVIN : [address]: Melania Alvarez MD Acct: [id number] Unit: [id number] AGE: 32 Location: [facility] Re03/17/13 SEX: F Status: REG REF SPEC: [id number] TOYA: 03/17/13-[address]: Melania Alvarez MD REQ: [id number] RECD: 03/17/13 STATUS: COMP _ SOURCE: VAGINAL SPDESC: ORDERED: Affirm QUERIES: Medent Number [id number] Procedure Result Verified Site Affirm Vaginal DNA [...] performed at Main Lab DEPARTMENT OF PATHOLOGY, [facility] [address] [place] [address] Je Lowe M.D. Director [facility] Permit #[id number] RUN DATE: 03/20/13 [facility] LAB LIVE PAGE 1 RUN TIME: [address] [facility] [place], [place] [address] Specimen Inquiry Name: MAGDA KEVIN : [address]: Melania Alvarez MD Acct: [id number] Unit: [id number] AGE: 32 Location: [facility] Re03/17/13 SEX: F Status: REG REF SPEC: [id number] TOYA: 03/17/139 [facility] DR: Melania Alvarez MD REQ: [id number] RECD: 03/17/13 STATUS: SOUT _ ORDERED: IMAGE ANALYSIS FINAL [...] was evaluated with the assistance of the PeakStreamPrep Test Imaging System. Due to cytologic findings at the pack worker microscope, comprehensive manual rescreening by a Residential Roofer Helper may be required. The Pap Smear is [...] performed at Main Lab DEPARTMENT OF PATHOLOGY, [facility] [place], [place] [address] Je Lowe M.D. Director [facility] Permit #[id number] RUN DATE: 03/21/13 [facility] LAB LIVE PAGE 1 RUN TIME: [address] [facility] [place], [place] [address] Specimen Inquiry Name: MAGDA KEVIN : [address]: Melania Alvarez MD Acct: [id number] Unit: [id number] AGE: 32 Location: [facility] Re03/17/13 SEX: F Status: REG REF SPEC: [id number] TOYA: 03/17/13-1312 [facility] [address]: Melania Alvarez MD REQ: [id number] RECD: 03/17/13602 STATUS: SOUT _ ORDERED: LEVEL III FINAL [...] performed at Main Lab DEPARTMENT OF PATHOLOGY, [address] [place] [address] Je Lowe M.D. Director [facility] Permit #[id number] Procedures Date Code Description Status 03/17/2013 08186 Biopsy Of Vulva One Lesion (Separate Procedure) Completed Encounters Type Date Location Provider Dx Diagnosis Office Visit 2017 [facility] Ruth Palomares, Z00.00 Encntr for general 2:40p Medicine - [place] [employer] adult medical exam Rd w/o abnormal findings M25.572 Pain in left ankle and joints of left foot Office Visit 09/17/2017 11:20a [facility] Mikal Riddle NP J11.89 Influenza due to Medicine - unidentified [place] influenza virus w oth manifest Office Visit 07/09/2015 3:00p [facility] Melania Alvarez Z00.00 Encntr for general Medicine - M.D. adult medical exam [place] w/o abnormal findings Z82.49 Family hx of ischem heart dis and oth dis of the circ sys R79.9 Abnormal finding of blood chemistry, unspecified Z12.4 Encounter for screening for malignant neoplasm of cervix Z23 Encounter for immunization Office Visit 11/27/2014 3:40p [facility] Melania Alvarez, 461.8 Sinusitis Acute Medicine - M.D. Other [place] 466.0 Bronchitis Acute 782.9 Skin & Integumentary Tissue Other Symptoms Office Visit 10/17/2014 2:30p [facility] Mikal Riddle, 461.8 Sinusitis Acute Medicine - LAB CLERK Other [place] 782.9 Skin & Integumentary Tissue Other Symptoms Office Visit 10/02/2014 9:00a [facility] Melania Alvarez, 461.8 Sinusitis Acute Medicine - M.D. Other [place] 461.9 Sinusitis Acute Unspec Office Visit 07/04/2014 9:00a [facility] Melania Alvarez V70.0 Examination Medicine - M.D. [facility] Routine AT Health Care Facility V76.2 Screening Malignant Neoplasm Cervix V76.19 Screening Breast Exam Malignant Neoplasms Other 300.02 Anxiety Disorder Generalized V17.49 Family HX Of Other Cardiovascular Diseases V04.81 Need For Prophylactic Vaccination & Inoculation/Influenza Office Visit 01/25/2014 3:20p [facility] Melania Alvarez, 380.22 Otitis Externa Medicine - M.D. Other Acute [place] Office Visit 10/31/2013 10:00a [facility] Maribel Tinsley, 478.9 Upper Resp Medicine - M.DJames, FACP Tract Disease [place] Other & Unspec 462 Pharyngitis Acute Office Visit 07/19/2013 [facility] Mary Ann 786.2 Cough 3:30p Medicine - [place] N.P. [place] Office Visit 06/20/2013 [facility] Melania Alvarez M.D. 461.9 Sinusitis Acute 2:40p Medicine - Unspec [place] Office Visit 04/25/2013 [facility] Melania Alvarez M.D. 681.11 Onychia & 3:00p Medicine - Paronychia Toe [place] Office Visit 03/17/2013 [facility] Melania Alvarez M.D. V70.0 Examination 9:00a Medicine - [facility] Routine AT Health Care Facility 300.02 Anxiety Disorder Generalized 709.8 Skin Disorders Other Spec V76.19 Screening Breast Exam Malignant Neoplasms Other V76.2 Screening Malignant Neoplasm Cervix v72.31 Routine Technologist Infectious Disease Examination Plan of Treatment 07/01/2018 - Mikal Riddle NPB07.0 Plantar wartComments:You can use over the counter Dr. Potter wart remover pads.Referral:Dasia Cavazos MD, ZtnhvlosuskL87.8 Other viral wartsComments:You can use over the counter compound W daily.
[2018-07-30 07:18] VITALS: BP 117/61
--- NOTE | 2018-07-30 07:59 | UC ---
Throat Pain/Nasal Maurilio HPI - HPI Summary HPI Summary: Started getting typical uri symptoms about a week ago -- nasal congestion, sore throat, PND. Tends to get ABRS with colds and allergies, has been using netipot and doing hot showers/compresses, but symptoms worsening since last night. Bright green nasal drainage, pain in face, and now bilat eyes red and crusty. Has needed to wash eyes out entirely twice so far this morning. - History of Current Complaint Chief Complaint: UCGeneralIllness Stated Complaint: SINUS AND EYE COMPLAINT Time Seen by Provider: 07/30/18 07:44 Hx Obtained From: Patient Hx Last Menstrual Period: currently ?: No Onset/Duration: Gradual Onset, Lasting Days Severity: Moderate Pain Intensity: 4 Cough: Productive Associated Signs & Symptoms: Positive: Sinus Discomfort, Nasal Discharge. Negative: Fever, Vomiting - Allergies/Home Medications Allergies/Adverse Reactions: Allergies Allergy/AdvReac Type Severity Reaction Status Date / Time No Known Allergies Allergy Verified 07/30/18 07:18 Home Medications: Home Medications Ibuprofen TAB* [Advil TAB*] 400 mg PO ONCE PRN 07/30/18 [History Confirmed 07/30] PMH/Surg Hx/FS Hx/Imm Hx Previously Healthy: Yes - Surgical History Surgical History: None - Family History Known Family History: Negative: Renal Disease - Social History Occupation: Employed Full-time Lives: With Family Alcohol Use: Weekly Substance Use Type: None Smoking Status (MU): Never Smoked Tobacco Have You Smoked in the Last Year: No Review of Systems All Other Systems Reviewed And Are Negative: Yes Constitutional: Positive: Negative Skin: Positive: Negative Eyes: Positive: Drainage, Eye Redness ENT: Positive: Nasal Discharge, Sinus Congestion, Sinus Pain/Tenderness Respiratory: Positive: Negative Cardiovascular: Positive: Negative Gastrointestinal: Positive: Negative Genitourinary: Positive: Negative Motor: Positive: Negative Neurovascular: Positive: Negative Musculoskeletal: Positive: Negative Neurological: Positive: Negative Psychological: Positive: Negative Is Patient Immunocompromised?: No Physical Exam Triage Information Reviewed: Yes Appearance: Well-Appearing, No Pain Distress, Well-Nourished Vital Signs: Initial Vital Signs Temp 97.9 F 07/30/18 07:12 Pulse 70 07/30/18 07:12 Resp 14 07/30/18 07:12 BP 117/61 07/30/18 07:12 Pulse Ox 99 07/30/18 07:12 Eyes: Positive: Conjunctiva Inflamed, Discharge - matter on lashes ENT: Positive: Hearing grossly normal, Pharynx normal, Nasal congestion, Nasal drainage, TMs normal, Sinus tenderness Dental Exam: Normal Neck exam: Normal Neck: Positive: Supple, Nontender, No Lymphadenopathy Respiratory Exam: Normal Respiratory: Positive: Chest non-tender, Lungs clear, Normal breath sounds, No respiratory distress, No accessory muscle use Cardiovascular Exam: Normal Cardiovascular: Positive: RRR, No Murmur Musculoskeletal Exam: Normal Neurological Exam: Normal Neurological: Positive: Alert Psychological Exam: Normal Skin Exam: Normal Throat Pain/Nasal Course/Dx - Differential Dx/Diagnosis Provider Diagnosis: Acute bacterial rhinosinusitis, Acute conjunctivitis, unspecified Discharge - Sign-Out/Discharge Documenting (check all that apply): Patient Departure All imaging exams completed and their final reports reviewed: No Studies - Discharge Plan Condition: Stable Disposition: HOME Prescriptions: Amoxicillin/Clavulanate TAB* [Augmentin TAB 875*] 875 mg PO BID #14 tab Polymyx/Trimethoprim OPTH* [Polytrim OPHTH*] 1 drop BOTH EYES TID #1 btl Patient Education Materials: Rhinosinusitis (DC) Referrals: No Primary Care Phys,NOPCP [Primary Care Provider] - Additional Instructions: Please come back if you have fever, trouble breathing, or worsening symptoms. - Billing Disposition and Condition Condition: STABLE Disposition: Home
== END 2018-07-30 07:57 | disposition home or self-care (01) ==
LOC: UCEAST 07:10
DX: J01.90 Acute sinusitis, unspecified (principal); B96.89 Other specified bacterial agents as the cause of diseases classified elsewhere; H10.30 Unspecified acute conjunctivitis, unspecified eye
CPT/HCPCS: 99212; G0463

== ENCOUNTER 2019-02-25 10:19 | Emergency (ER) | payer BC ==
[2019-02-25 10:48] VITALS: BP 103/70
--- NOTE | 2019-02-25 11:42 | UC ---
Skin Complaint HPI - HPI Summary HPI Summary: 38-year-old woman comes in with a chief complaint of and itching rash that started on the left wrist after she was gardening. It spread up her arm onto her left side of her chest and her left leg. It itches. There is a serous drainage from some of it. No fevers or chills. She has been using over-the- counter medications but the rash continues to spread. - History of Current Complaint Chief Complaint: UCRash Time Seen by Provider: 02/25/19 11:31 Stated Complaint: RASH Hx Last Menstrual Period: 02/14/19 Pain Intensity: 0 - Allergy/Home Medications Allergies/Adverse Reactions: Allergies Allergy/AdvReac Type Severity Reaction Status Date / Time No Known Allergies Allergy Verified 02/25/19 10:42 Home Medications: Home Medications Cetirizine* [ZyrTEC 10 MG TAB*] 10 mg PO DAILY 02/25/19 [History Confirmed 02/25] PMH/Surg Hx/FS Hx/Imm Hx Previously Healthy: Yes - Surgical History Surgical History: None - Family History Known Family History: Negative: Renal Disease - Social History Alcohol Use: Rare Substance Use Type: None Smoking Status (MU): Never Smoked Tobacco Have You Smoked in the Last Year: No Review of Systems All Other Systems Reviewed And Are Negative: Yes Constitutional: Positive: Negative Skin: Positive: Other - see hpi Eyes: Positive: Negative ENT: Positive: Negative Respiratory: Positive: Negative Cardiovascular: Positive: Negative Gastrointestinal: Positive: Negative Motor: Positive: Negative Neurovascular: Positive: Negative Musculoskeletal: Positive: Negative Neurological: Positive: Negative Psychological: Positive: Negative Is Patient Immunocompromised?: No Physical Exam Triage Information Reviewed: Yes Appearance: Well-Appearing, No Pain Distress, Well-Nourished Vital Signs: Initial Vital Signs Temp 97.9 F 02/25/19 10:43 Pulse 63 02/25/19 10:43 Resp 16 02/25/19 10:43 BP 103/70 02/25/19 10:43 Pulse Ox 100 02/25/19 10:43 Vital Signs Reviewed: Yes Eye Exam: Normal Eyes: Positive: Conjunctiva Clear Neck: Positive: Supple Respiratory: Positive: No respiratory distress Musculoskeletal Exam: Normal Musculoskeletal: Positive: Strength Intact, ROM Intact Neurological Exam: Normal Neurological: Positive: Alert, Muscle Tone Normal Psychological: Positive: Age Appropriate Behavior Skin: Positive: Other - There is a scattered rash on the left arm and left leg. It's erythematous slightly raised and often and tracks. Consistent with the poison [place]ul[place] dermatitis. Course/Dx - Diagnoses Provider Diagnosis: Poison [place] dermatitis Discharge - Sign-Out/Discharge Documenting (check all that apply): Patient Departure All imaging exams completed and their final reports reviewed: No Studies - Discharge Plan Condition: Stable Disposition: HOME Prescriptions: methylPREDNISolone [Medrol Dosepak 4 MG*] 0 mg PO .SEE MILTON INSTRUCTION #1 milton Patient Education Materials: Poison [place] (ED) Referrals: [facility] [place] [facility]FERR[facility] [Outside] Additional Instructions: FOLLOW UP WITH YOUR DOCTOR IF NOT COMPLETELY IMPROVED. GET RECHECKED SOONER IF YOUR CONDITION WORSENS OR ANY QUESTIONS OR CONCERNS. - Billing Disposition and Condition Condition: STABLE Disposition: Home
== END 2019-02-25 11:45 | disposition home or self-care (01) ==
LOC: UCEAST 10:19
DX: L23.7 Allergic contact dermatitis due to plants, except food (principal)
CPT/HCPCS: 99212; G0463

== ENCOUNTER 2019-07-10 15:21 | Emergency (ER) | payer BC ==
[2019-07-10 15:49] VITALS: BP 105/73
--- NOTE | 2019-07-10 15:57 | UC ---
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 +_ bleeding, controlled with pressure. + pain. no history of MSK diseases, poor wound healing, bleeding disorders. full movement, no numbness. - History Of Current Complaint Chief Complaint: UCLaceration Stated Complaint: HAND LACERATION Time Seen by Provider: 07/10/19 15:55 Hx Obtained From: Patient Hx Last Menstrual Period: 02/14/19 Laceration Location: Hand Mechanism Of Injury: Sharp Trauma - glass Onset/Duration: Sudden Onset Severity: Moderate Pain Intensity: 6 Pain Scale Used: 0-10 Numeric Aggravating Factors: Nothing - Allergies/Home Medications Allergies/Adverse Reactions: Allergies Allergy/AdvReac Type Severity Reaction Status Date / Time No Known Allergies Allergy Verified 02/25/19 10:42 Home Medications: Home Medications NK [No Home Medications Reported] 07/10/19 [History Confirmed 07/10/19] PMH/Surg Hx/FS Hx/Imm Hx Previously Healthy: Yes - Surgical History Surgical History: None - Family History Known Family History: Positive: Non-Contributory Negative: Renal Disease - Social History Occupation: Unemployed Alcohol Use: Rare Substance Use Type: None Smoking Status (MU): Never Smoked Tobacco Have You Smoked in the Last Year: No Review of Systems All Other Systems Reviewed And Are Negative: Yes Constitutional: Positive: Negative Skin: Positive: Other - laceration Musculoskeletal: Positive: Arthralgia, Myalgia Is Patient Immunocompromised?: No Physical Exam Triage Information Reviewed: Yes Appearance: Well-Appearing, No Pain Distress, Well-Nourished Vital Signs: Initial Vital Signs Temp 99 F 07/10/19 15:43 Pulse 64 07/10/19 15:43 Resp 16 07/10/19 15:43 BP 105/73 07/10/19 15:43 Pulse Ox 100 07/10/19 15:43 Vital Signs Reviewed: Yes Musculoskeletal: Positive: Strength Intact, ROM Intact - right hand throughout. , No Edema Neurological Exam: Normal Neurological: Positive: Alert, Other: - SITLT distal to laceration, throughout entire right hand. Psychological Exam: Normal Psychological: Positive: Normal Response To Family Skin: Positive: Other - laceration to right hand thenar emminence. able to see base of wound, no FB visible. Laceration Repair - Laceration Repair 1 Procedure Summary: right hand laceration on thenar emminence, area anes with 1% lidocaine without complication, irrigated well by nursing staff, sutures 4 placed without complication. Sensation, movement full before and after procedure. no complications. nurse applied dressing. Description: Linear Laceration Size After Repair: Length (cm) - 3, Width (mm) - 3, Depth (mm) - 5 Contamination/FB Removal: no Modified For Repair: No Type Injection: Local Anesthesia Used: 1.0% Lido Cleansing Completed Via Routine Prep: No Irrigation With Pressure Irrigation Device: Yes Closure Material: Skin Adhesive, Sutures - 4 Closure Method: Single Layer Suture Of: Skin Suture Type: Nylon Laceration Course/Dx - Course/Dx Course Of Treatment: Laceration repair with 4 stitches - Remove within 7-10 days, follow up with primary physician or return for removal - OK to wash hand in 24 hours, no soaking/ submerging wound until sutures removed - Tylenol/ Motrin as needed for pain - Keep area elevated, Iced to help with pain - Return with drainage, redness, increased pain, decreased movement of fingers. Keep area covered until sutures removed. - Differential Dx - Laceration/Wound Differental Diagnoses: Cellulitis, Joint Infection, Laceration, Tendon Laceration - Diagnosis Provider Diagnosis: Laceration of right hand without complication, excluding fingers Discharge ED - Sign-Out/Discharge Documenting (check all that apply): Patient Departure All imaging exams completed and their final reports reviewed: No Studies - Discharge Plan Condition: Fair Disposition: HOME Patient Education Materials: Laceration (DC) Referrals: Mikal Riddle NP [Primary Care Provider] - Additional Instructions: Laceration repair with 4 stitches - Remove within 7-10 days, follow up with primary physician or return for removal - OK to wash hand in 24 hours, no soaking/ submerging wound until sutures removed - Tylenol/ Motrin as needed for pain - Keep area elevated, Iced to help with pain - Return with drainage, redness, increased pain, decreased movement of fingers. Keep area covered until sutures removed. - Billing Disposition and Condition Condition: FAIR Disposition: Home - Attestation Statements Provider Attestation: Per institutional requirements, I have reviewed the chart, however, I was not consulted specifically or made aware of this patient by the midlevel provider. I did not personally evaluate, interact with , or disposition this patient.
[2019-07-10] MEDS ORDERED: Lidocaine 1% w EPI 1:100,000* MDV 20 ML VIAL INJ ONE (16:17)
[2019-07-10] MEDS ORDERED: Lidocaine 1% MPF ** 5 ML VIAL INJ ONE (16:28)
== END 2019-07-10 17:05 | disposition home or self-care (01) ==
LOC: UCEAST 15:21
DX: S61.411A Laceration without foreign body of right hand, initial encounter (principal); W25.XXXA Contact with sharp glass, initial encounter; Y92.9 Unspecified place or not applicable
CPT/HCPCS: 12001; 12002; 99211; G0463

== ENCOUNTER 2022-08-27 17:25 | Inpatient (IN) ==
[2022-08-27] MEDS ORDERED: Buffered Lidocaine 1% SYRIN 1 ml INTRADERM ONE (18:01)
[2022-08-27] MEDS ORDERED: Nalbuphine 10 MG/ML 1 ML VIAL IV PRN (18:01)
[2022-08-27] MEDS ORDERED: Promethazine INJ(RESTRICTED) 25 MG/ML 1 ml VIAL IV PRN (18:01)
[2022-08-27] MEDS ORDERED: Lactated Ringers 1000 ml BAG 1,000 ML IV ONE ×2 (18:01→21:41)
[2022-08-27 18:12] LABS: ABS Basophils 0.1 10^3/ul (0-0.2); ABS Eosinophils 0.1 10^3/ul (0-0.6); ABS Lymphocytes 1.8 10^3/ul (1.0-4.8); ABS Monocytes 0.9 10^3/ul (0-0.8); ABS Neutrophils 11.5 10^3/ul (1.5-7.7); Eosinophil % 0.5 %; Hematocrit 37 % (35-47); Hemoglobin 11.9 g/dL (12.0-16.0); Lymphocyte % 12.9 %; Mean Corpuscular HGB Conc 32 g/dL (31-36); Mean Corpuscular Hemoglobin 29 pg (27-31); Mean Corpuscular Volume 89 fL (80-97); Mean Platelet Volume 6.9 fL (7.4-10.4); Platelet Count 395 10^3/uL (150-450); Red Blood Count 4.16 10^6 /uL (3.70-4.87); Red Cell Distribution Width 15 % (10-15); White Blood Count 14.3 10^3/uL (3.5-10.8)
[2022-08-27] MEDS ORDERED: Lactated Ringers 1000 ml BAG 1,000 ML IV SCH ×2 (19:00→22:00)
[2022-08-27] MEDS ORDERED: Lidocaine 1% VIAL 10 MG/ML VIAL 30 ML ONE (21:01)
[2022-08-27] MEDS ORDERED: EPINEPHrine SULFITE FREE 1 MG/ML ONE (21:01)
[2022-08-27] MEDS ORDERED: OBEPIDURAL (200 ML) 200 ML EPIDURAL ONE (21:03)
[2022-08-27] MEDS ORDERED: Lidocaine/Epinephrin 1.5%/200 5 ML AMP INJ ONE (21:10)
[2022-08-27] MEDS ORDERED: Sodium Citrate/Citric Acid LIQ 15 ML UDC PO PRN (21:41)
[2022-08-27] MEDS ORDERED: Phenylephrine 40 mcg/mL 10mL (400mcg) SYRINGE IV PUSH PRN ×2 (21:41)
[2022-08-27] MEDS ORDERED: Oxytocin in LR 20,000 MILLI.UNIT/1,000 ML BAG IV SCH (22:00)
[2022-08-27] MEDS ORDERED: OBEPIDURAL (200 ML) 200 ML EPIDURAL SCH (22:00)
[2022-08-28] MEDS ORDERED: Lidocaine 2% PF 10 ML AMP (OR) ONE (01:11)
[2022-08-28] MEDS ORDERED: ceFOXitin 2 GM IVPREMIX 2 GM/50 ML BAG IVPB ONE (01:19)
[2022-08-28 01:28] LABS: Urine Appearance Cloudy; Urine Bilirubin Negative (Negative); Urine Blood 3+ (Negative); Urine Color Yellow; Urine Glucose Negative (Negative); Urine Ketones 2+ (Negative); Urine Nitrite Negative (Negative); Urine Protein 1+(30 mg/dL) (Negative); Urine Specific Gravity 1.018 (1.002-1.030); Urine Urobilinogen Negative (Negative)
[2022-08-28 01:31] LABS: Urine Benzodiazepine Screen None Detected (None Detect); Urine Cannabinoids Screen None Detected (None Detect); Urine Opiates Screen None Detected (None Detect)
[2022-08-28] MEDS ORDERED: Acetaminophen IV 1 GM/100ML 1,000 MG/100 ML BAG IV ONE (01:35)
[2022-08-28] MEDS ORDERED: Naloxone 0.4 mg VIAL 0.4 mg/ml 1 ml VIAL IV PRN (01:35)
[2022-08-28] MEDS ORDERED: Ondansetron 4 mg VIAL 2 MG/ML 2 ml VIAL IV PRN ×2 (01:35→03:09)
[2022-08-28] MEDS ORDERED: fentaNYL 100 mcg/2 ml 50 MCG/ML VIAL IV PRN (01:35)
[2022-08-28 01:42] LABS: Urine Bacteria Absent (Absent); Urine Red Blood Cell 2+(6-10/hpf) (Absent); Urine Squamous Epithelial Cell Present (Absent); Urine White Blood Cell Trace(0-5/hpf) (Absent)
[2022-08-28] MEDS ORDERED: Morphine PF AMP (0.5MG/ML) 5 MG/10 ML AMP ONE (02:08)
[2022-08-28] MEDS ORDERED: Ondansetron 4 mg VIAL 2 MG/ML 2 ml VIAL ONE (02:45)
[2022-08-28] MEDS ORDERED: Naloxone 0.4 mg VIAL 0.4 mg/ml 1 ml VIAL IV PUSH PRN (03:09)
[2022-08-28] MEDS ORDERED: Metoclopramide 5 MG/ML VIAL (10 mg) IV PRN (03:09)
[2022-08-28] MEDS ORDERED: Acetaminophen IV 1 GM/100ML 1,000 MG/100 ML BAG IV PRN (03:09)
[2022-08-28] MEDS ORDERED: Witch Hazel PAD JAR TOPICAL PRN (03:26)
[2022-08-28] MEDS ORDERED: Glycerin ADULT 2.4 gm SUPP PR PRN (03:26)
[2022-08-28] MEDS ORDERED: Dibucaine 1% OINT 28.35 GM TUBE PR PRN (03:26)
[2022-08-28] MEDS ORDERED: Oxytocin in LR 20,000 MILLI.UNIT/1,000 ML BAG IV SCH (03:30)
[2022-08-28] MEDS ORDERED: Lactated Ringers 1000 ml BAG 1,000 ML IV SCH (04:00)
[2022-08-29 08:23] LABS: ABS Eosinophils 0.1 10^3/ul (0-0.6); ABS Lymphocytes 2.1 10^3/ul (1.0-4.8); ABS Monocytes 0.8 10^3/ul (0-0.8); ABS Neutrophils 9.4 10^3/ul (1.5-7.7); Eosinophil % 1.1 %; Hematocrit 26 % (35-47); Hemoglobin 8.3 g/dL (12.0-16.0); Lymphocyte % 16.7 %; Mean Corpuscular HGB Conc 33 g/dL (31-36); Mean Corpuscular Hemoglobin 30 pg (27-31); Mean Corpuscular Volume 90 fL (80-97); Mean Platelet Volume 6.6 fL (7.4-10.4); Platelet Count 298 10^3/uL (150-450); Red Blood Count 2.83 10^6 /uL (3.70-4.87); Red Cell Distribution Width 16 % (10-15); White Blood Count 12.4 10^3/uL (3.5-10.8)
[2022-08-30 07:54] VITALS: BP 110/72
== END 2022-08-30 11:21 | disposition home or self-care (01) | DRG 540 ==
LOC: MCHOBOUT 17:25 → MCHOB 18:04
PROVIDERS: ADMIT Obstetrics & Gynecology; ATTEND Obstetrics & Gynecology